=== PATIENT | female | born 1990 ===

== ENCOUNTER 2019-01-24 11:53 | Inpatient (IN) ==
[2019-01-24] MEDS ORDERED: OXYTOCIN 30 UNITS/500 ML BAG IV PRN ×3 (13:04→23:35)
[2019-01-24 13:37] LABS: Hematocrit (blood only) 37.7 % (37-47); Hemoglobin 13.4 g/dL (12.0-16.0); Mean Corpuscular Volume 91.3 fL (80-100); Mean Platelet Volume 10.6 fL (7.4-10.4); Platelet Count 216 K/uL (130-400); RDW Coefficient of Variation 12.8 % (11.5-14.5); RDW Standard Deviation 42.8 fL (36.4-46.3); Red Blood Count 4.13 M/uL (4.2-5.4); White Blood Count 14.66 K/uL (4.8-10.8)
[2019-01-24 13:43] LABS: Mean Corpuscular Hgb Conc 35.5 g/dL (32-36)
--- NOTE | 2019-01-24 14:11 | History & Physical Report ---
Date of Service January 24, 2019 Assessment & Plan (1) 40 weeks gestation of : (2) Elective induction of labor planned: fetus category one. plan pitocin induction. treat gbs. arom as needed. anticipate . (3) GBS (group B Streptococcus carrier), +RV culture, currently : History of Present Illness Chief Complaint: Patient is a 28 yowf with iup at 40 5/7 weeks who presents to labor and delivery for induction of labor for postdates. Patient notes intermittent contractions, no lof/vb. +fm. complicated by carrier of gbs, exposure to cmv and influenza A in May with treatment for Tamiflu. labs--A+/ab-/ri/rprnr/hrpb-/hiv-/gc/ct-/gtt x 2 nl/ qs neg/gbs positive Primary Care Provider: Mihaela Melendrez Allergies Allergy/AdvReac Type Severity Reaction Status Date / Time bee venom protein (honey bee) Allergy Unknown Unknown Verified 01/24/19 13:39 No Known Drug Allergies Allergy Unknown Unknown Verified 01/24/19 13:39 Home Medications Home Medications Medication Instructions Recorded Confirmed Type 1 tab PO DAILY 01/18/19 01/24/19 History vitamin,calcium,nvbksjfm-ucyy-xsagb acid tablet inositol-D chiro inositol 2,000 ea PO BID 01/24/19 01/24/19 History [Ovasitol] Patient History Medical History H/O influenza History of PCOS Surgical History S/P wisdom tooth extraction Family History Father Depression Dyslipidemia Hypertension Grandmother (Maternal) Heart disease Ovarian cancer Aunt Endometriosis Sarcoidosis Multiple gestation Grandfather (Paternal) Kidney disease Grandmother (Paternal) Multiple gestation Thyroid disease Social History Preferred Language: Togolese Communication Ability: Effective Tub Mender Required: No Beliefs That Will Affect Care: None Current Living Situation: Spouse Other Information That Helps Us Care for You: No Feels Safe at Home: Yes Safety Concerns: Feels Safe At This Time Smoking Status: Never smoker Do You Dip or Chew Tobacco: No ; Second Hand Exposure: No ; Tobacco Cessation Education Requested by Patient: No Hx Alcohol Use: No Hx Substance Use: No 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
[2019-01-24] MEDS: LACTATED RINGER'S 1,000 ML IV PRN ×2 (14:40→20:45)
[2019-01-24] MEDS ORDERED: PENICILLIN G POTASSIUM 6 MU in DEXTROSE 5% 250 ML IV STA (15:12)
[2019-01-24] MEDS ORDERED: PENICILLIN G POTASSIUM 3 MU in DEXTROSE 5% 100 ML IV PRN (19:00)
--- NOTE | 2019-01-24 19:07 | Labor Progress Brief Note ---
Date of Service January 24, 2019 Subjective feeling some contractions, still pretty comfortable Assessment & Plan (1) Elective induction of labor planned: fetus reassuring. continue current management. epidural on demand. Physical Exam Constitutional: WD/WN, vitals as above Genitourinary: cx--/-2 arom--copious clear fluid toco--q2-3min, pit at 14 efm--130s with mod variability, acels to 160s, no decels Results & Data Vital Signs (Past 12 Hours) Vital Signs Temp Pulse Resp BP 01/24/19 18:50 74 16 123/66 01/24/19 18:21 82 127/74 01/24/19 17:50 60 117/62 01/24/19 17:20 75 119/72 01/24/19 17:04 86 129/73 01/24/19 16:50 68 122/65 01/24/19 16:35 80 125/69 01/24/19 16:21 77 123/74 01/24/19 16:05 78 119/70 01/24/19 15:36 72 117/65 01/24/19 15:15 36.8 C 74 16 115/67 01/24/19 13:52 36.8 C 76 20 128/74
[2019-01-24 22:41] LABS: Base Excess Cord Arterial Bld -4.9 mEq/L (-9-1.8); CO2 Cord Arterial Blood 44 mmHg (39.1-73.5); HCO3 Cord Arterial Blood 21 mmol/L (19.7-28.5); PO2 Cord Arterial Blood 22.3 % (4.1-31.7); pH Cord Arterial Blood 7.31 (7.1-7.38)
[2019-01-24 22:46] LABS: Oxygen Sat Cord Arterial Blood < 60.0 % (<60)
[2019-01-24 22:47] LABS: Base Excess Cord Venous Blood -5.5 mEq/L (-7.7-1.9); Cord Venous Blood HCO3 20 mmol/L (18.4-26.8); Cord Venous Blood PCO2 39 mmHg (30.4-57.2); Cord Venous Blood PO2 23 mmHg (14.1-43.3); Cord Venous Blood pH 7.33 (7.20-7.44)
[2019-01-24 22:48] LABS: O2 Saturation Cord Venous Bld < 60.0 % (<68)
[2019-01-24] MEDS ORDERED: IBUPROFEN 600 MG TAB PO ONE (23:24)
[2019-01-24] MEDS ORDERED: ACETAMINOPHEN 325 MG TAB PO PRN (23:32)
[2019-01-24] MEDS ORDERED: OXYCODONE/ACETAMINOPHEN 5mg/325mg TAB PO PRN (23:32)
[2019-01-24] MEDS ORDERED: HYDROCORTISONE ACETATE 25 MG SUPP PR PRN (23:35)
[2019-01-24] MEDS ORDERED: SUPERCREAM 0.870% 15 GM JAR EXT PRN (23:35)
[2019-01-24] MEDS ORDERED: BENZOCAINE 20% AER SPR 82.5 GM CAN EXT PRN (23:35)
[2019-01-24] MEDS ORDERED: DIPHTHERIA/TETANUS/PERTUSSIS 0.5 ML SYR/VIAL IM ONE (23:35)
[2019-01-24] MEDS ORDERED: BISACODYL 10 MG SUPP PR PRN (23:35)
--- NOTE | 2019-01-25 01:16 | Delivery Summary ---
DATE OF OPERATION: 01/24/2019 PREOPERATIVE DIAGNOSES: 1. Intrauterine at 41 weeks. 2. Terminal bradycardia with poor maternal effort secondary to pain. 3. GBS carrier. POSTOPERATIVE DIAGNOSES: 1. Intrauterine at 41 weeks. 2. Terminal bradycardia with poor maternal effort secondary to pain. 3. GBS carrier. PROCEDURES: 1. Penicillin for GBS prophylaxis. 2. Pitocin augmentation. 3. Amniotomy for copious amounts of clear fluid. 4. Vacuum assisted vaginal delivery. 5. Second degree perineal laceration, left labial laceration and small right sulcal laceration with repair. SURGEON: Jazmín Rodriguez MD ANESTHESIA: Local infiltration of lidocaine. ESTIMATED BLOOD LOSS: 450 mL. PROCEDURE: The patient presented to labor and delivery for induction. She was GBS positive and received penicillin prophylaxis. She underwent Pitocin augmentation until she was in a good contraction pattern. She was offered an epidural at this time before rupture of membranes and declines had rupture of membranes. She then progressed spontaneously to anterior lip and the lip was reduced and the patient was able to push with excellent effort. Unfortunately, the fetus had a deceleration to the 90s that was fairly persistent even despite between contractions. The patient was pushing with good effort but was having difficulty secondary to discomfort with . I offered her a vacuum to help her out. The patient initially declined. Unfortunately, the heart tones stayed in the 90s and had been in the 90s for several minutes. So at this point in time, I told the patient that I was going to need to help after another episode of pushing where she was unable to get past because of discomfort, I told the patient that I was going to need to assist her with a vacuum. I briefly described the risks and she was agreeable. I also told the patient I thought I would need to cut an episiotomy, she declined that. The vacuum was placed and popped off x1. The patient continued to push and again still had heart tones in the 90s. I told the patient that we needed to get the baby delivered because of the low heart rate and I said to her that I needed to cut an episiotomy so that we can get the baby past the introitus. She then agreed. A midline episiotomy was cut. The vacuum was applied and over the next contraction, the vertex was delivered in JANESSA presentation that restituted to ROP presentation. There was no nuchal cord. The anterior shoulder was then easily delivered and the rest of the baby was delivered without difficulty. The baby was immediately vigorous. The nose and mouth were bulb suctioned. The was placed on maternal abdomen for drying and attention. The cord was clamped and cut at 1 minute of life. Cord blood and segment were obtained and then blood was obtained for cord blood collection. Placenta was delivered spontaneously and intact with a 3-vessel cord. Fortunately, we only had a second degree perineal laceration, but we also had a left labial laceration and small right sulcus laceration. We started by infiltrating the perineum and the labia with lidocaine. The right labial laceration was repaired and brought out through the introitus, then returned to the left labial laceration because it was bleeding and several interrupted sutures of 4-0 Vicryl was placed there. The second degree perineal laceration was then subsequently repaired with 3-0 Vicryl. Cervix, sulci and rectum were examined and found to be intact. Estimated blood loss was 450 mL. Apgars were 8 and 9. Weight is pending. Mother and baby doing well at the end of the delivery. I attest to the content of the Intraoperative Record and any orders documented therein. Any exception s are noted below.
[2019-01-25 07:13] LABS: Hematocrit (blood only) 29.2 % (37-47); Hemoglobin 10.8 g/dL (12.0-16.0)
--- NOTE | 2019-01-25 07:25 | Obstetrical Progress Note ---
Date of Service January 25, 2019 Assessment & Plan (1) Vacuum-assisted vaginal delivery: Doing well. Routine PP care. Day #:: 1 Subjective Ambulation: ambulating normally Voiding: no voiding problems Passing Gas:: Yes Diet Tolerance:: regular diet Lochia:: Small Feeding Type:: breast feeding Minimal pain, controlled Physical Exam Constitutional WD/WN, vitals as above Cardiovascular Extremities: no calf tenderness and no edema Gastrointestinal (Abdomen) Inspection/Auscultation: abdomen not distended Percussion/Palpation: abdomen soft; abdomen nontender ff/nt at u Psychiatric A+Ox3, euthymic affect Results & Data Vital Signs (Past 12 Hours) Vital Signs Temp Pulse Pulse Resp BP BP Pulse Ox 01/25/19 04:10 36.9 C 67 18 106/65 98 01/25/19 01:00 36.9 C 90 18 119/64 01/25/19 00:48 36.7 C 90 20 119/64 01/25/19 00:42 70 117/53 L 01/25/19 00:27 18 01/24/19 23:57 75 18 124/58 L 01/24/19 23:45 69 117/59 L 01/24/19 23:39 77 123/57 L 01/24/19 23:31 81 18 220/93 H 01/24/19 23:21 78 18 127/64 01/24/19 22:55 83 16 115/56 L 01/24/19 22:40 37.0 C 83 18 124/57 L 01/24/19 22:25 93 H 100 01/24/19 22:20 87 100 01/24/19 22:15 85 99 01/24/19 22:10 93 H 84 L 01/24/19 22:08 86 92 01/24/19 22:05 80 100 01/24/19 22:03 74 91 01/24/19 22:00 75 100 01/24/19 21:57 90 83 L 01/24/19 21:55 95 H 100 01/24/19 21:50 70 100 01/24/19 21:45 85 100 01/24/19 21:11 36.8 C 59 L 20 126/64 01/24/19 19:59 67 121/63 01/24/19 19:57 18
[2019-01-25] MEDS: DOCUSATE SODIUM 100 MG CAP PO SCH ×2 (08:50→20:35)
[2019-01-25] MEDS: PRENATAL VITAMIN 1 TAB PO SCH (08:50)
[2019-01-25] MEDS: IBUPROFEN 600 MG TAB PO PRN (19:07)
[2019-01-25] MEDS ORDERED: BISACODYL 5 MG TABEC PO SCH (20:00)
--- NOTE | 2019-01-26 07:31 | Obstetrical Progress Note ---
Date of Service <Annette Arcos MD - Last Filed: 01/26/19 07:31> January 26, 2019 Assessment & Plan <Annette Arcos MD - Last Filed: 01/26/19 07:31> (1) Vacuum-assisted vaginal delivery: (2) GBS carrier: (3) Encounter for care and examination after delivery: PPD2 after VAVD Doing well today Limited ambulation so far tolerating fluids, oral diet Pain 1/10 well managed with motrin/tylenol Consider discharge later today Subjective <Annette Arcos MD - Last Filed: 01/26/19 07:31> Ambulation: ambulating normally Voiding: no voiding problems Passing Gas:: Yes Diet Tolerance:: regular diet Feeding Type:: breast feeding Current Pain Level(1-10): 0 Constitutional: + fatigue; no fever and no chills Respiratory: no cough and no dyspnea No shortness of breath Cardiovascular: no chest pain, no syncope, no edema and no calf pain Breast: + breast pain Gastrointestinal: + cramping; no abdominal pain, no nausea, no vomiting, no constipation and no diarrhea/loose stools (passed gas, no bowel movements) Genitourinary (female): no dysuria and no difficulty urinating Neurologic: no headache(s) Physical Exam <Annette Arcos MD - Last Filed: 01/26/19 07:31> Constitutional well developed and well nourished Respiratory normal respiratory effort; no respiratory distress, no labored breathing and no cough Auscultation: no crackles, no rales, no rhonchi and no wheezes Cardiovascular Rate/Rhythm: regular rate and regular rhythm Heart Sounds: no gallop, no murmur and no cardiac rub Extremities: no pedal edema Gastrointestinal (Abdomen) Inspection/Auscultation: + abdomen distended and normal bowel sounds Percussion/Palpation: + abdomen tender and abdomen soft; no guarding Genitourinary Uterus firm, some tenderness to palpation. Results & Data <Annette Arcos MD - Last Filed: 01/26/19 07:31> Vital Signs (Past 12 Hours) Vital Signs Temp Pulse Resp BP Pulse Ox 01/26/19 01:01 36.9 C 80 18 100/62 95 01/25/19 20:00 37 C 88 18 110/70 97 <Leandro Bacon MD - Last Filed: 01/26/19 08:55> Co-Signing Physician Notes Patient seen and evaluated and agree with the above findings and plan. Stable for D/c today
[2019-01-26] MEDS: DOCUSATE SODIUM 100 MG CAP PO SCH (07:57)
[2019-01-26] MEDS: PRENATAL VITAMIN 1 TAB PO SCH (07:57)
[2019-01-26] MEDS: IBUPROFEN 600 MG TAB PO PRN (12:37)
--- NOTE | 2019-01-28 10:13 | Discharge Summary ---
ADMISSION DIAGNOSES: 1. Intrauterine at 40+ weeks. 2. Induction of labor. 3. GBS positive. DISCHARGE DIAGNOSES: 1. Intrauterine at 40+ weeks. 2. Induction of labor. 3. GBS positive. PROCEDURES: 1. Penicillin for GBS prophylaxis. 2. Pitocin augmentation. 3. Amniotomy. 4. Vacuum-assisted vaginal delivery for bradycardia and poor pain control. HISTORY OF PRESENT ILLNESS: The patient is a 28-year-old white female G1, P0 with intrauterine at 40 and 5/7 weeks who presents to labor and delivery for induction of labor for postdates. She notes intermittent contractions, no leakage of fluid, vaginal bleeding. She is a carrier for GBS and her was otherwise uncomplicated. For the rest of the patient's detailed history and physical, please see her history and physical. On exam, her cervix was 4, 90 and -2. Her EFMs were category 1. ASSESSMENT: This is a at 40 and 4/7 weeks who presents for postdates induction. HOSPITAL COURSE: Penicillin was started for group B strep prophylaxis. She underwent an amniotomy for copious amounts of clear fluid when she was still 4, 90. The patient progressed from 4 to 9-1/2 pretty quickly and was very painful, but was instructed to push and did very well with this. She pushed with excellent effort. Unfortunately, fetus had a deceleration to the 90s that was fairly persistent even between contractions. The patient was having good effort, but having difficulty with pushing secondary to discomfort with , I offered a vacuum. The patient initially declined. Unfortunately, the heart tones stayed in the 90s, it had been 5 minutes. At that point, I told the patient that I was going to need to help her with her pushing as she was unable to get past where she was because of discomfort. I advised the patient that I was going to use a vacuum. I briefly described the risks and she was agreeable. I also told the patient that she would need to cut episiotomy, she declined that. The vacuum was placed and popped off x1. The patient continued to push and again still had heart tones in the 90s. I told the patient that we need to get the baby delivered because of low heart rate and I need to cut episiotomy so that we could get the baby past the introitus. She was then agreeable. The midline episiotomy was cut. The vacuum was applied again, and over the next contraction, the vertex was delivered. There was no nuchal cord. The anterior shoulder and the rest of baby were then delivered without difficulty. The baby was immediately vigorous. The nose and mouth were bulb suctioned. The was placed on the maternal abdomen for drying and attention. Cord was clamped and cut at 1 minute of life. A second-degree perineal laceration, left labial laceration and small right sulcal laceration was repaired in the normal standard fashion. The patient's course was uncomplicated. She did well, achieved all goals and was discharged home on day #2.
== END 2019-01-26 13:52 | disposition home or self-care (01) | DRG 807 ==
LOC: 4S1 12:56 → 4S2 01-25 00:55

== ENCOUNTER 2021-07-23 02:14 | Inpatient (IN) ==
[2021-07-23] MEDS ORDERED: LACTATED RINGER'S 1,000 ML IV PRN (02:47)
[2021-07-23] MEDS ORDERED: OXYTOCIN 30 UNITS/500 ML BAG IV PRN ×2 (02:47→09:37)
[2021-07-23 03:11] LABS: Hematocrit (blood only) 37.5 % (37-47); Hemoglobin 13.3 g/dL (12.0-16.0); Mean Corpuscular Hemoglobin 32.4 pg (25-34); Mean Corpuscular Volume 91.2 fL (80-100); Mean Platelet Volume 10.4 fL (7.4-10.4); Platelet Count 211 K/uL (130-400); RDW Coefficient of Variation 13.1 % (11.5-14.5); RDW Standard Deviation 43.7 fL (36.4-46.3); Red Blood Count 4.11 M/uL (4.2-5.4)
[2021-07-23 03:35] LABS: Mean Corpuscular Hgb Conc 35.5 g/dL (32-36)
--- NOTE | 2021-07-23 07:52 | Labor Progress Brief Note ---
Date of Service July 23, 2021 Subjective Tolerating ctx well but requesting AROM at this point to hurry the process along. Assessment & Plan (1) Normal labor and delivery: Plan: Expectant management, desires NCB (2) Gestational diabetes mellitus (GDM) affecting , antepartum: Admission and Anticipated Discharge Date Admission Date: July 23, 2021 Physical Exam Genitourinary: /-1 Bag ruptured for clear fluid FHT Cat 1 [place] Q2-3 Results & Data ([facility]) Vital Signs (Past 12 Hours) Vital Signs Temp Pulse Resp BP 07/23/21 07:04 98.8 F 84 20 108/55 L 07/23/21 04:27 18 07/23/21 04:15 88 120/72 07/23/21 04:00 18 07/23/21 02:32 97.9 F 18 07/23/21 02:28 94 H 126/73 Coding Level of Care Code None Diagnoses Normal labor and delivery O80 Gestational diabetes mellitus (GDM) affecting , antepartum O24.419
[2021-07-23] MEDS ORDERED: LIDOCAINE 1% LOCAL 20 ML VIAL ONE (08:35)
--- NOTE | 2021-07-23 09:03 | Delivery Summary ---
Vaginal Delivery Summary Date of Service July 23, 2021 Vaginal Delivery Summary and 2nd Degree LAC PREOPERATIVE DIAGNOSIS: 1. Single intrauterine at 39 6/7 2. Labor 3. Gestational diabetes POSTOPERATIVE DIAGNOSIS: 1. Single intrauterine at 39 6/7 2. Labor 3. Gestational diabetes 4. Delivered PROCEDURE: 1. Normal spontaneous vaginal delivery. SURGEON: Leesa Romo MD ANESTHESIA: Local ESTIMATED BLOOD LOSS: 300 mL FLUIDS: Continuous LR. URINE OUTPUT: None. COMPLICATIONS: None. CONDITION: Stable. INDICATIONS: 31 y/o at 39 6/7 wga presented this morning with contractions increasing in frequency and intensity. On arrival was found to be 7-8cm. She underwent artificial rupture of membranes and progressed to complete and desired to push. FINDINGS: A viable male , weight pending with Apgars of 8 and 9 at 1 and 5 minutes respectively. SPECIMEN: Cord blood OPERATIVE REPORT: The patient progressed to 10 cm, 100% effaced and +2 station, pushed over intact perineum with anesthesia to deliver a viable male , weight and Apgars as above. Head of delivered in KAREEN position. No nuchal cord was present. Body and shoulders were delivered without difficulty. was delivered to maternal abdomen and nursing staff. Delayed cord clamping was performed for 60 seconds. Cord was clamped and cut. Cord blood was obtained. Placenta delivered spontaneously intact with 3-vessel cord. IV oxytocin and fundal massage were given for excellent hemostasis. Vagina, cervix, perineum, and placenta were inspected. A second degree laceration was noted and repaired using 3-0 Vicryl. A left vaginal laceration was noted and repaired in the same way. An external right labial laceration was noted and repaired using interrupted stitches of 4-0 vicryl. Sponge and needle counts correct x2. No sponges were left behind. Mother and stable in immediate period. [facility] Vaginal Delivery Charge Vaginal Delivery Codes: 40850 global code for the antepartum, delivery, and post- Delivery Type Details: and 2nd Degree LAC
[2021-07-23] MEDS ORDERED: COUGH DROP (SUGAR FREE) LOZ 24 LOZ/1 BOX BUCCAL ONE (09:24)
[2021-07-23] MEDS ORDERED: BENZOCAINE 20% AER SPR 82.5 GM CAN EXT PRN (09:37)
[2021-07-23] MEDS ORDERED: SUPERCREAM 0.870% 15 GM JAR EXT PRN (09:37)
[2021-07-23] MEDS ORDERED: bisacodyL 10 MG SUPP PR PRN (09:37)
[2021-07-23] MEDS ORDERED: DIPHTHERIA/TETANUS/PERTUSSIS 0.5 ML SYR/VIAL IM ONE (09:37)
[2021-07-23] MEDS ORDERED: HYDROCORTISONE ACETATE 25 MG SUPP PR PRN (09:37)
[2021-07-23] MEDS ORDERED: ACETAMINOPHEN 325 MG TAB PO PRN (09:37)
[2021-07-23] MEDS: IBUPROFEN 600 MG TAB PO PRN ×2 (11:35→15:40)
[2021-07-23] MEDS: DOCUSATE SODIUM 100 MG CAP PO SCH (20:17)
--- NOTE | 2021-07-24 06:09 | Obstetrical Progress Note ---
Date of Service <Dacia Mcpherson DO - Last Filed: 07/24/21 06:22> July 24, 2021 Assessment & Plan <Dacia Mcpherson - Last Filed: 07/24/21 06:22> (1) Encounter for care and examination after delivery: 31 yo post op day1 from with GDM, doing well. -Continue routine post care. -vital signs reviewed and WNL (Tmax 36.5) -Blood Type A+, GBS-, Rubella immune -Encourage ambulation, monitor and control pain with Motrin, tylenol PRN, resume regular diet, monitor lochia -encourage breast feeding -hemoglobin 13.3 -patient comfortable with discharge Day #:: 1 <Leesa Romo MD - Last Filed: 07/24/21 06:57> (1) Encounter for care and examination after delivery: Subjective <Dacia Mcpherson - Last Filed: 07/24/21 06:22> Ambulation: ambulating normally Voiding: no voiding problems Passing Gas:: Yes Diet Tolerance:: regular diet Lochia:: Moderate Feeding Type:: breast feeding Current Pain Level(1-10): 0 Review of Systems Negative fever chills Negative headache dizziness Negative chest pain palpitations SOB Negative nausea vomitting diarrhea constipation Negative numbness tingling rash swelling Physical Exam <Dacia Mcpherson DO Lopez Last Filed: 07/24/21 06:22> General: Alert, oriented. No acute distress. Cardiac: Regular rate and rhythm, no murmurs/rubs/gallops. Respiratory: Clear to auscultation bilaterally a/p, no wheezes/rales/rhonchi. No increased work of breathing. Symmetrical chest rise. No respiratory distress. Abdomen: Soft, nontender, nondistended. Bowel sounds present. Uterus: Uterine fundus firm, palpable at umbilicus. Lower Extremities: No lower extremity edema or swelling. No deep calf pain. Luis A's negative bilaterally.. Results & Data ([facility]) <Dacia Mcpherson DO Lopez Last Filed: 07/24/21 06:22> Vital Signs (Past 12 Hours) Vital Signs Temp Pulse Resp BP Pulse Ox 07/24/21 05:00 36.5 C 83 16 103/61 07/24/21 00:45 36.8 C 83 18 93/53 L 07/23/21 19:50 36.7 C 80 16 96/55 L 97 <Leesa Romo MD - Last Filed: 07/24/21 06:57> Co-Signing Physician Notes Resident Physician Supervision Note: I interviewed and examined the patient. Discussed with Dr. Mcpherson and agree with findings and plan as documented in the note. Any exceptions or clarifications are listed here: 31 y/o PP1 s/p , doing well. Meeting pp milestones. VSS, exam wnl. Desires d/c home today, stable to do so Documented By: Leesa Romo MD Resident Activity Tracking <Dacia Mcpherson DO - Last Filed: 07/24/21 06:22> Resident Involvement: Resident Care Provided Care Provided: Adult Hospital Medicine
[2021-07-24 06:27] LABS: Hematocrit (blood only) 35.8 % (37-47); Hemoglobin 12.5 g/dL (12.0-16.0); Mean Corpuscular Hemoglobin 32.1 pg (25-34); Mean Corpuscular Hgb Conc 34.9 g/dL (32-36); Mean Corpuscular Volume 91.8 fL (80-100); Mean Platelet Volume 10.6 fL (7.4-10.4); Platelet Count 211 K/uL (130-400); RDW Coefficient of Variation 13.4 % (11.5-14.5); RDW Standard Deviation 44.5 fL (36.4-46.3); White Blood Count 13.42 K/uL (4.8-10.8)
[2021-07-24] MEDS ORDERED: PRENATAL VITAMIN 1 TAB PO SCH (08:00)
[2021-07-24] MEDS: IBUPROFEN 600 MG TAB PO PRN (08:13)
[2021-07-24] MEDS: DOCUSATE SODIUM 100 MG CAP PO SCH (08:14)
[2021-07-24] MEDS ORDERED: bisacodyL 5 MG TABEC PO SCH (20:00)
== END 2021-07-24 12:55 | disposition home or self-care (01) | DRG 807 ==
LOC: OPB 02:14 → 4S1 02:19 → 4S2 12:34